=== PATIENT | female | born 1940 | race Caucasian/White ===

== ENCOUNTER 2017-04-14 16:28 | Inpatient (IN) | payer MEDICARE, BC ==
[~2017-04-14] VITALS: Ht 152.4 cm
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
[2017-04-14] MEDS ORDERED: PLAVIX75 MG PO (17:44)
[2017-04-14] MEDS ORDERED: LISINOPRIL10 MG PO (17:45)
[2017-04-14] MEDS ORDERED: NAMENDA10 MG PO (17:50)
[2017-04-14] MEDS ORDERED: OMEPRAZOLE20 M1 PO (17:51)
[2017-04-14] MEDS ORDERED: ARICEPT10 MG PO (17:52)
[2017-04-14] MEDS ORDERED: BETAPACE 80 MG80 MG PO (17:52)
[2017-04-14] MEDS ORDERED: CRESTOR20 MG PO (17:53)
[2017-04-14] MEDS ORDERED: COLACE100 MG PO (17:54)
[2017-04-14] MEDS ORDERED: NYSTATIN15 GM TOPICAL (17:57)
[2017-04-14 21:29] VITALS: BP 108/75
[2017-04-15 01:47] VITALS: BP 108/75; BMI 25.8
--- NOTE | 2017-04-15 04:57 | NUR ---
B) Patient alert and oriented to self, very confused and disoriented, quiet and pleasant, no aggression noted, I) Administered scheduled medications, redirected as needed, monitored for safety R) Medication compliant, wanders at times, P) Continue plan of care.
[2017-04-15 05:55] LABS: BASOPHILS 0.7 % (0-2); EOSINOPHILS 6.5 % (0-7); HEMATOCRIT 44.3 % (36.0-48.0); IMMATURE GRANULOCYTES 0.2 % (0-5); LYMPHOCYTES 33.4 % (15-50); MCH 30.5 pg (26.0-34.0); MCHC 31.6 g/dL (31.0-37.0); MCV 96.5 fL (80.0-100.0); MEAN PLATELET VOLUME 10.1 fL (7.4-10.4); MONOCYTES 8.6 % (2-11); NEUTROPHILS 50.6 % (40-80); PLATELET COUNT 259 10x3/uL (130-400); RBC 4.59 10x6/uL (4.00-5.40); RDW 14.3 % (11.5-14.5)
[2017-04-15 06:13] LABS: HEMOGLOBIN A1C 6.5 % (4.8-6.0)
[2017-04-15 06:18] LABS: ALBUMIN 3.3 g/dL (3.4-5.0); ANION GAP 11.3 mmol/L (8-16); BILIRUBIN - TOTAL 0.37 mg/dL (0.2-1.3); CALCIUM 8.7 mg/dL (8.5-10.1); CARBON DIOXIDE 29.9 mmol/L (21.0-32.0); CHOL - HDL RATIO 3.5 ratio (2.3-4.1); LDL-HDL RATIO 2.1 ratio (1.5-3.5); POTASSIUM - SERUM 5.2 mmol/L (3.5-5.1); PROTEIN - SERUM 6.9 g/dL (6.4-8.2); THYROID STIMULATING HORMONE 1.4 uIU/mL (0.36-3.74)
[2017-04-15 09:59] VITALS: BP 164/115
[2017-04-15 10:22] VITALS: BMI 25.7
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
--- NOTE | 2017-04-16 02:54 | NUR ---
B) Patient is alert and oriented to her self only, very confused, difficult to redirect unaware of where she is in a hospital, I) Administered scheduled medications, redirected as needed,crushed medications, R) Medications compliant aftered several tries, talks in word salad, P) Continue plan of care.
--- NOTE | 2017-04-16 08:03 | NUR ---
B) PATIENT IS AWAKE, SHE IS AMBULATING INDEPENDENTLY, BUT SHE IS CONFUSED, SHE CAN NOT FOLLOW SIMPLE COMMANDS, SHE HAS NOT ALLOWED ANYONE TO TAKE HER VS AND SHE DIDN'T REALLY WANT ANYONE TO TOUCH HER FOR AN ASSESSMENT THIS AM. I) PROVIDE PRESCRIBED MEDS. R) PATIENT IS COMPLIANT WITH MEDS. P) CONTINUE POC.
[2017-04-16 08:18] LABS: RAPID PLASMA REAGIN Non Reactive (Non Reactive); VITAMIN D 25 HYDROXY 14.7 ng/mL (30.0-100.0)
[2017-04-16 12:16] LABS: FOLATE (FOLIC ACID) - SERUM 9.1 ng/mL (>3.0)
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
[2017-04-16 19:38] LABS: APPEARANCE CLEAR (CLEAR); COLOR YELLOW (YELLOW)
[2017-04-16 19:39] LABS: BACTERIA MANY /hpf (NONE SEEN); BILIRUBIN NEGATIVE (NEGATIVE); EPITHELIAL CELLS 0-5 /hpf (0-5); GLUCOSE NEGATIVE (NEGATIVE); KETONE NEGATIVE (NEGATIVE); LEUKOCYTE ESTERASE 1+ (NEGATIVE); NITRITE NEGATIVE (NEGATIVE); PROTEIN NEGATIVE (NEGATIVE); RED CELLS - URINE 0-5 /hpf (0-5); SPECIFIC GRAVITY 1.015 (1.005-1.020); UROBILINOGEN NORMAL (NORMAL); WHITE CELLS - URINE 25-50 /hpf (0-5)
--- NOTE | 2017-04-17 03:06 | NUR ---
B) Patient alert and oriented to self, very confused, restless and anxious, wanders and states that she needs her babies, I) Administered scheduled medications, monitored for safety and behaviors, PRN Ativan 0.5 mg IM and Haldol 2 mg IM given for anxiety at 23:15, R) Medication compliant, resting quietly now, P) Continue plan of care.
[2017-04-17 08:42] VITALS: BP 174/85
--- NOTE | 2017-04-17 09:50 | PN ---
PATIENT:COLETTE MONTEIRO MEDICAL RECORD: [id number] LOCATION:JUMA Sanchez112 ADMISSION DATE: 04/14/17 PROGRESS NOTE DATE OF SERVICE: 04/16/2017 SUBJECTIVE: The patient's case was discussed with staff. She has no new complaint. OBJECTIVE: The patient is in good behavioral control with limited insight about her condition. She generally tolerates her medicines well. Eye contact is fair. Concentration is poor. ASSESSMENT: No change in diagnoses. PLAN: The patient is severely impaired. In fact Dr. Ayanna Chambers was unable to test her. Her dementia is quite advanced. She has not been aggressive today. TRANSINT:[id number] Voice Confirmation ID: [id number] DOCUMENT ID: [id number] EVANS KLINE MD at 0950 CC: [id number] DICTATION DATE: 04/16/17 1316 PALLET RECTIFIER: 04/16/17 1609 ADM IN [place] [id number] [place] [address]
--- NOTE | 2017-04-17 11:02 | NUR ---
B) PATIENT IS CONFUSED, SHE KNOWS HER NAME, BUT SHE HAS NO INSIGHT INTO HER ILLNESS, POOR SHORT TERM MEMORY RECALL. SHE AMBULES INDEPENDENTLY, SHE IS INCONTINENT OF B&B. PATIENT HAS NOT SHOWN ANY AGGRESSION TODAY. I) PROVIDE PRESCRIBED MEDS. R) PATIENT IS COMPLIANT WITH MEDS. SHE DOES NOT LIKE TO BE TOUCHED. SHE DID TAKE HER MEDS CRUSHED IN ICE CREAM THIS AM. P) CONTINUE POC.
--- NOTE | 2017-04-18 04:42 | NUR ---
B] PATIENT IS ALERT AND ORIENTED TO SELF ONLY, WANDERS AROUND TALKING IN WORD SALAD, VERY CONFUSED AND ANXIOUS AT TIMES, I] ADMINISTERED SCHEDULED MEDICATIONS, MONITORED FOR SAFETY, R) MEDICATION COMPLIANT,VERY CONFUSED, P] CONTINUE PLAN OF CARE.
[2017-04-18 08:00] VITALS: Ht 152.4 cm
--- NOTE | 2017-04-18 12:48 | PN ---
PATIENT:COLETTE MONTEIRO MEDICAL RECORD: [id number] LOCATION:BLAZEAaliyah Sanchez112 ADMISSION DATE: 04/14/17 PROGRESS NOTE DATE OF SERVICE: 04/17/2017 SUBJECTIVE: The patient's case was discussed with staff. She has no new complaint. OBJECTIVE: The patient has been significantly agitated, required p.r.n. Haldol and Ativan last night. The patient has no recollection of this. ASSESSMENT: No change in diagnoses. PLAN: Current medicines and therapies have been reviewed, both will be maintained. Her long-term prognosis is guarded. TRANSINT:[id number] Voice Confirmation ID: [id number] DOCUMENT ID: [id number] EVANS KLINE MD at 1248 CC: [id number] DICTATION DATE: 04/17/17 1006 CATERING ASSISTANT: 04/17/17 1406 ADM IN [place] [id number] [place] [id number]
--- NOTE | 2017-04-18 16:57 | NUR ---
RECEIVED THIS AM SITTING IN CHAIR IN HALLWAY AT NURSES STATION.IS ORIENTED TO SELF BUT REFUSES TO ANSWER QUESTIONS THIS AM.THIS AFTERNOON IS FRIENDLY TO THIS NURSE,VERY CONFUSED,UNABLE TO MAKE A COMPLETE THOUGHT.MEDS WERE TAKEN CRUSHED AND IN ICE CREAM .AMB PER SELF.WILL CONTINUE WITH PLAN OF CARE,MONITOR FOR GHANGES AND SAFETY.
--- NOTE | 2017-04-18 22:58 | NUR ---
B) Smiling and grinning, listening to peers but speaks few words. "If they're snotty", ... "go over there", ... then rambling nonsensical word salad. Noted to have bruising on both arms. Entered room during rounds, found patient sqatting on floor voiding. No verbal response when asked patient why she did not use the bathroom. I) Administer medications as ordered, redirect and reorient PRN. Offer 1:1 to verbalize feelings. Give time to respond. Assist with hygiene care. R) No aggression this shift. Took medications crushed in chocolate ice cream. Confused, oriented to person only. P) Continue to monitor per plan of care.
[2017-04-19 07:00] VITALS: BP 145/115
--- NOTE | 2017-04-19 10:00 | NUR ---
B) ORIENTED TO NAME ONLY, COOPERATIVE, SMILES, SPEECH IS WORD SALAD. SHE IS VERY CONFUSED AND DISORIENTED. NO AGGRESSION OR HALLUCINATIONS NOTED. I) ADMINISTERED PRESCRIBED MEDICATIONS, GROUP THERAPY PROVIDED. R) CONPLIANT WITH TAKING MEDICATIONS CRUSHED IN ICE CREAM. P) MONITOR FOR SAFETY AND CONTINUE CURRENT PLAN OF CARE.
--- NOTE | 2017-04-19 11:08 | PN ---
PATIENT:COLETTE MONTEIRO MEDICAL RECORD: [id number] LOCATION:JemimaGilbertoLIZZ Sanchez112 ADMISSION DATE: 04/14/17 PROGRESS NOTE DATE OF SERVICE: 04/18/2017 SUBJECTIVE: The patient's case was discussed with staff. She has no new complaint. OBJECTIVE: The patient denies intent to harm herself or others. She generally tolerates her medicines well. ASSESSMENT: No change in diagnoses. PLAN: Current medicines and therapies have been reviewed, both will be maintained. Long-term prognosis is guarded. TRANSINT:[id number] Voice Confirmation ID: [id number] DOCUMENT ID: [id number] EVANS KLINE MD at 1108 CC: [id number] DICTATION DATE: 04/18/17 1244 RADIO STATION ENGINEER: 04/18/172013 ADM IN [facility] [address] [place] [address]
[2017-04-19 19:54] VITALS: BP 110/60
--- NOTE | 2017-04-19 20:48 | NUR ---
RECEIVED IN DAYROOM. SITTING IN A CHAIR WITH A PEER AT HER SIDE. NOT SOCIALIZING. CALM AND COOPEWRATIVE WITH CARE AND ASSESSMENTS. NO SIGNS OF AGGRESSION. CONTINUES TO SIT QUIETLY IN CHAIR. CONTINUE PLAN OF CARE
--- NOTE | 2017-04-20 10:17 | PN ---
PATIENT:COLETTE MONTEIRO MEDICAL RECORD: [id number] LOCATION:BLAZEAaliyah Sanchez112 ADMISSION DATE: 04/14/17 PROGRESS NOTE DATE OF SERVICE: 04/19/2017 SUBJECTIVE: The patient's case was discussed with staff. She has no new complaint. OBJECTIVE: The patient denies intent to harm herself or others. She is very impaired cognitively and easily becomes anxious. ASSESSMENT: No change in diagnoses. PLAN: The patient will be treated with BuSpar at a dose of 10 mg twice daily. BuSpar is being used to treat her underlying anxiety. She will be monitored for clinical changes associated with its use. I anticipate she can be transitioned out of the hospital soon if this level of improvement is maintained. TRANSINT:[id number] Voice Confirmation ID: [id number] DOCUMENT ID: [id number] EVANS KLINE MD at 1017 CC: [id number] DICTATION DATE: 04/19/17 1401 TOOL AND DIE MACHINIST: 04/19/17 1552 ADM IN [place] [id number] [place] [address]
--- NOTE | 2017-04-20 15:13 | NUR ---
SITTING IN RECLINER WITH PEERS BY HER SIDE. VERY CONFUSED AND DISORIENTED TO SITUATION. ONLY ORIENTED TO HER NAME. ASSESSMENT COMPLETED. COOPERATIVE AT TIMES, WITH CARE. HER SPEEDCJH IS WORD SALAD. COMPLIANT WITH TAKING MEDICATIONS CRUSHED IN ICE CREAM. WILL CONTINUE PLAN OF CARE.
--- NOTE | 2017-04-20 20:09 | NUR ---
RECEIVED IN DAYROOM. SITTING IN CHAIR WITH PEERS AT HER SIDE. CALM AND COOPERATIVE WITH CARE AND ASSESSMENT. NO SIGNS OF AGGRESSION. REDIRECT AND REORIENT NEEDED. CONTINUES TO SIT QUIETLY IN CHAIR. CONTINUE PLAN OF CARE.
--- NOTE | 2017-04-20 20:45 | NUR ---
AGGRESSION WITH REDIRECTION. ATTEMPTED TO HIS MHT. ERDIRECTED AND REORIENTED.
[2017-04-20 21:15] VITALS: BP 157/52
[2017-04-21 07:58] VITALS: BP 142/85
--- NOTE | 2017-04-21 12:49 | PN ---
PATIENT:COLETTE MONTEIRO MEDICAL RECORD: [id number] LOCATION:BLAZEAaliyah Sanchez112 ADMISSION DATE: 04/14/17 PROGRESS NOTE DATE OF SERVICE: 04/20/2017 SUBJECTIVE: The patient's case was discussed with staff. She has no new complaint. OBJECTIVE: The patient is in good behavioral control with limited insight about her condition. She generally tolerates her medicines well. ASSESSMENT: No change in diagnoses. PLAN: Brief supportive and educational interventions were made. The patient is quite advanced. [facility] and assess her to ensure that she can have her needs met at that facility. TRANSINT:[id number] Voice Confirmation ID: [id number] DOCUMENT ID: [id number] EVANS KLINE MD at 1249 CC: [id number] DICTATION DATE: 04/20/17 1031 LINEMAN A CLASS: 04/20/17 1042 ADM IN [place] [id number] [place] [address]
--- NOTE | 2017-04-21 14:37 | NUR ---
B) PATIENT IS ORIENTED TO HERSELF ONLY, SHE IS SEVERELY IMPAIRED, SHE HAS NO INSIGHT INTO HER SITUATION OR HER ILLNESS. PATIENT AMBULATES AD [facility]O, SHE IS INCONT OF B&B, SHE IS UNABLE TO FOLLOW SIMPLE COMMANDS, BUT SHE HAS NOT SHOWN ANY AGGRESSION TODAY. I) PROVIDE PRESCRIBED MEDS. R) PATIENT IS COMPLIANT WITH MEDS, SHE NEEDS MULTIPLE PROMPTS TO ASSIST WITH ACTIVITIES. P) CONTINUE POC.
--- NOTE | 2017-04-22 00:31 | NUR ---
B) Patient is alert and oriented to self only, very confused and wanders at times, no awareness of surroundings noted, when spoken to she turns toward you with a blank stare, I) Administered scheduled medications crushed in ice cream that she fed herself. R) Medication compliant, calm and cooperative P) Continue plan of care.
--- NOTE | 2017-04-22 14:34 | NUR ---
Nutrition Follow Up: Chart reviewed. Pt feeds herself with cueing per MD note. Pt is eating 39% meal avg on a regular diet. +BM 04/21/17. Meds and labs reviewed. Rec continue current diet. Pt may benefit from an appetite stimulant. Will send Ensure TID. RD following.
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
--- NOTE | 2017-04-23 02:22 | NUR ---
B) patient is alert and oriented to self, very confused and unaware of surrounding, wandering the halls trying to go into other patients rooms, says she has to find 'him', I) Administered scheduled medications crushed in ice cream , monitored for safety, PRN Ativan 0.5 mg IM and Haldol 2 mg IM given for anxiety, R) Medication compliant, resting in bed now, P) Continue plan of care.
--- NOTE | 2017-04-23 07:53 | PN ---
PATIENT:COLETTE MONTEIRO MEDICAL RECORD: [id number] LOCATION:JUMA OnofreGilberto112 ADMISSION DATE: 04/14/17 PROGRESS NOTE DATE OF SERVICE: 04/22/2017 SUBJECTIVE: No new complaint. OBJECTIVE: The patient is somewhat poorly responsive. There is a great deal of latency in her speech and she remains quite confused. She is passively cooperative. Mood on the interview is somewhat perplexed. Affect very constricted. Speech is quite terse. Content of thought is negative for overt psychosis. Sensorium unchanged. ASSESSMENT: No change in diagnosis. PLAN: 1. Maintain current medications. 2. Continue supportive therapy. TRANSINT:[id number] Voice Confirmation ID: [id number] DOCUMENT ID: [id number] ANGELA RIVAS III, MD at 0753 CC: [id number] DICTATION DATE: 04/22/17 1204 FIREARMS SPECIALIST: 04/22/17 1300 ADM IN [place] [address] [place] [address]
--- NOTE | 2017-04-23 13:42 | NUR ---
B) PATIENT IS AWAKE AND ALERT, ORIENTED TO HER NAME AT TIMES, SHE ANSWERS SOME QUESTIONS APPROPRIATELY FROM TIME TO TIME, SHE USES FULL SENTENCES AT TIMES, BUT OTHER TIMES SHE USES WORD SALAD AND ECHALALIA. PATIENT AMBULATES INDEPENDENTLY, NEEDS ASSIST WITH ADL'S AND MEAL SET UP. I) PROVIDE PRESCRIBED MEDS. R) PATIENT IS COMPLIANT WITH MEDS AND UNIT MILIEU. NO AGGRESSION NOTED TODAY. P) CONTINUE POC.
--- NOTE | 2017-04-23 21:40 | PN ---
PATIENT:COLETTE MONTEIRO MEDICAL RECORD: [id number] LOCATION:JUMA Sanchez112 ADMISSION DATE: 04/14/17 PROGRESS NOTE DATE OF SERVICE: 04/23/2017 SUBJECTIVE: No new complaint. OBJECTIVE: The patient did have an episode of combativeness during activities of daily living when staff was giving her a shower. She continues to be extremely confused and is constantly looking for her "baby" as well as her . On exam, mood is somewhat anxious. Affect is very shallow. Speech is terse. Content of thought, exhibits delusional ideation due to profound sensorium deficits. Sensorium is unchanged. ASSESSMENT: No change in diagnosis. PLAN: 1. Continue current medications. 2. Continue supportive therapy. TRANSINT:[id number] Voice Confirmation ID: [id number] DOCUMENT ID: [id number] ANGELA RIVAS III, MD at 2140 CC: [id number] DICTATION DATE: 04/23/17 1234 MANAGER SPRING: 04/23/17 1329 ADM IN [place] [address] [place] [address]
--- NOTE | 2017-04-24 03:39 | NUR ---
B) Patient alert and oriented to self only, wanders at times, very confused and unaware of surrounding, calm and pleasant. I) Administered scheduled medications, frequently redirected R) Medications compliant, restless at times, P) Continue plan of care.
[2017-04-24 10:20] VITALS: BP 161/85
--- NOTE | 2017-04-24 11:00 | NUR ---
B) ALERT AND ORIENTED TO SELF ONLY, VERY CONFUSED AND SPEAKS IN WORD SALAD. ASSESSMENT COMPLETED. CALM AND COOPERATIVE WITH CARE. I) ADMINISTER PRESCRIBED MEDICATIONS. REORIENT AND REDIRECT PRN. R) COMPLIANT WITH TAKING MEDICATIONS. WALKS AROUND DAYROOM OCCASIONALLY.
[2017-04-24 19:30] VITALS: BP 136/73
--- NOTE | 2017-04-25 04:15 | NUR ---
B) Patient alert and oriented to self only, patient unable to state name very confused and restless, wanders hallway at times, exit seeking. I) Administered scheduled medications, redireded frequenly, monitored for falls and safety. R) Medication compliant, blank expression, difficult to redirect, unable to orient. P) Continue plan of care.
[2017-04-25 07:00] VITALS: BP 128/81
[2017-04-25 19:47] VITALS: BP 139/66
--- NOTE | 2017-04-26 00:19 | NUR ---
RECEIVED IN BEDROOM. LAYING IN BED WITH EYES CLOSED. RESPONDS TO VOICE. CALM AND COOPERATIVE WITH CARE AND ASSESSMENTS. NO SIGNS OF AGGRESSION. RESTING IN BED WITH EYES CLOSED. CONTINUE PLAN OF CARE
[2017-04-26 08:30] VITALS: BP 145/48
--- NOTE | 2017-04-26 09:48 | PN ---
PATIENT:COLETTE MONTEIRO MEDICAL RECORD: [id number] LOCATION:BLAZEAaliyah Sanchez112 ADMISSION DATE: 04/14/17 PROGRESS NOTE DATE OF SERVICE: 04/21/2017 SUBJECTIVE: The patient's case was discussed with staff. She has no new complaint. OBJECTIVE: The patient is severely impaired cognitively. She has not been aggressive today. She has limited insight about her situation. ASSESSMENT: No change in diagnoses. PLAN: Supportive and educational interventions were made. Snf prognosis is guarded. TRANSINT:[id number] Voice Confirmation ID: [id number] DOCUMENT ID: [id number] EVANS KLINE MD at 0948 CC: [id number] DICTATION DATE: 04/21/17 1259 TANK FURNACE OPERATOR: 04/21/17 1432 ADM IN [place] [address] [place] [address]
--- NOTE | 2017-04-26 10:46 | NUR ---
PT IS VERY TIRED TODAY BUT DOES AWAKEN EASILY FOR ASSESSMENT AND MEDICATIONS. MEDICATIONS GIVEN ORDERED. NO AGGRESSION NOTED. PT REQUIRES FREQUENT REDIRECTION AND EDUCATION BUT SHOWS NO SIGNS OF UNDERSTANDING OR RETAINING. FALL PRECAUTIONS MAINTAINED. WILL CONTINUE TO MONITOR AND CONTINUE WITH PLAN OF CARE.
--- NOTE | 2017-04-26 11:26 | PN ---
PATIENT:COLETTE MONTEIRO MEDICAL RECORD: [id number] LOCATION:JemimaGilbertoLIZZ Sanchez112 ADMISSION DATE: 04/14/17 PROGRESS NOTE DATE OF SERVICE: 04/25/2017 SUBJECTIVE: No new complaint. OBJECTIVE: The patient continues to be extremely confused and does require redirection from time to time. On exam, mood is slightly anxious. Affect is very shallow and childlike. Speech is rather terse. Content of thought negative for overt psychosis. Sensorium shows no change. ASSESSMENT: No change in diagnoses. PLAN: 1. Maintain current medication. 2. Continue supportive therapy. TRANSINT:[id number] Voice Confirmation ID: [id number] DOCUMENT ID: [id number] ANGELA RIVAS III, MD at 1126 CC: [id number] DICTATION DATE: 04/25/172150 SHOPPING CENTRE MANAGER: 04/26/17 0021 ADM IN [facility] [address] [place] [id number]
[2017-04-26 19:25] VITALS: BP 146/91
--- NOTE | 2017-04-26 19:56 | NUR ---
RECEIVED IN HALLWAY. SITTING IN CHAIR WITH PEERS BY HER SIDE. CALM AND COOPERATIVE WITH CARE AND ASSESSMENTS. NO SIGNS OF AGGRESSION. REDIRECT AND REORIENT NEEDED. CONTINUES TO SIT QUIETLY IN HALLWAY. CONTINUE PLAN OF CARE
[2017-04-27 07:00] VITALS: BP 130/67
--- NOTE | 2017-04-27 07:50 | PN ---
PATIENT:COLETTE MONTEIRO MEDICAL RECORD: [id number] LOCATION:JUMA OnofreGilberto112 ADMISSION DATE: 04/14/17 PROGRESS NOTE DATE OF SERVICE: 04/26/2017 SUBJECTIVE: The patient's case was discussed with staff. She has no new complaint. OBJECTIVE: The patient's dementia is severe. She has almost no insight about her situation. She does have periods of agitation, but they seem to be limited to personal care. ASSESSMENT: No change in diagnoses. PLAN: I have reviewed this patient's medications. I think her prognosis is guarded. I anticipate that she can be transitioned back to the halfway soon. TRANSINT:[id number] Voice Confirmation ID: [id number] DOCUMENT ID: [id number] EVANS KLINE MD at 0750 CC: [id number] DICTATION DATE: 04/26/17 1000 CAMERA MECHANIC: 04/26/17 1530 ADM IN [place] [address] [place] [address]
--- NOTE | 2017-04-27 09:00 | NUR ---
ASSESSMENT COMPLETED. AWAKE AND ALERT TO NAME NAME ONLY. NEEDS LOTS OF REDIRECTING AND REORIENTING. ADMINISTER PRESCRIBED MEDICATIONS AND COMPLIANT WITH TAKING. AMBULATES ABOUT UNIT. SAFETY MAINTAINED. CONTINUE POC.
[2017-04-27] MEDS ORDERED: BUSPAR10 MG PO (14:39)
[2017-04-27] MEDS ORDERED: PERPHENAZINE2 MG PO (14:40)
[2017-04-27] MEDS ORDERED: VITAMIN D5000 UNIT PO (14:41)
[2017-04-27] MEDS ORDERED: VITAMIN B-121000 MCG PO (14:41)
--- NOTE | 2017-04-27 19:58 | NUR ---
RECEIVED IN HALLWAY OUTSIDE OF NURSES STATION. VERY CONFUSED. CALM AND COOPERATIVE WITH CARE AND ASSESSMENTS. NO SIGNS OF AGGRESSION. REDIERCT AND REOREINT NEEDED. CONTINUE PLAN OF CARE
[2017-04-28 08:48] VITALS: BP 125/58
--- NOTE | 2017-04-28 12:55 | NUR ---
Pt calm, quiet mood, alert, med compliant, no aggression. Appetite good. Belongings packed for discharge to LTC facility. Meds admin and group therapy provided. Cherelle meds well. Present for group. Compliant with meds and staff requests. Pt. ambulatory and assisted to OR bus per OR staff. Report called to LTC facility per Paulette Patterson RN. Physicians orders, med reconcilliation sheet and other pertinent discharge documents sent with OR staff. Pt disharged from [facility] in care of OR staff.
--- NOTE | 2017-04-28 15:29 | PN ---
PATIENT:COLETTE MONTEIRO MEDICAL RECORD: [id number] LOCATION:[facility] ADMISSION DATE: 04/14/17 PROGRESS NOTE DATE OF SERVICE: 04/27/2017 SUBJECTIVE: The patient's case was discussed with staff. She has no new complaint. OBJECTIVE: The patient is severely impaired cognitively. She has not been aggressive for a number of days. I see no improvement in her underlying cognition, which is severely impaired. ASSESSMENT: No change in diagnoses. PLAN: The patient's family [facility] and understand her condition. They do have her on a unit that provides a great deal of supervision. I think her long-term prognosis is guarded and she certainly has no evidence of acute or direct dangerousness, but is simply in need of 72-yjgs-v-day supervision. Based on this, I am going to go ahead and discharge her tomorrow back to the [facility] and follow up will be with her primary care physician and the [facility]. TRANSINT:[id number] Voice Confirmation ID: [id number] DOCUMENT ID: [id number] EVANS KLINE MD at 1529 CC: [id number] DICTATION DATE: 04/27/17 1438 PARTNER INTEGRATION PLANNER: 04/27/17 1948 ADM IN [place] [id number] [place] [address]
--- NOTE | 2017-04-29 12:33 | PN ---
PATIENT:COLETTE MONTEIRO MEDICAL RECORD: [id number] LOCATION:[facility] ADMISSION DATE: 04/14/17 PROGRESS NOTE DATE OF SERVICE: 04/28/2017 SUBJECTIVE: The patient's case was discussed with staff. She has no new complaint. OBJECTIVE: The patient is in good behavioral control with limited insight about her condition. She does tolerate her medicines well. ASSESSMENT: No change in diagnoses. PLAN: The patient will be transitioned out of the hospital today. Her long-term prognosis is guarded. Followup will be with her outpatient primary care physician. TRANSINT:[id number] Voice Confirmation ID: [id number] DOCUMENT ID: [id number] EVANS KLINE MD at 1233 CC: [id number] DICTATION DATE: 04/28/17 1548 SALES CLOSER: 04/28/17 2200 DIS IN 04/28/17 [facility] [address] [place] [address]
== END 2017-04-28 19:42 | disposition home or self-care (01) | DRG 57 ==
LOC: D.PSYCH 16:28
PROVIDERS: ADMIT Psychiatry & Neurology Psychiatry
DX: G30.1 Alzheimer's disease with late onset (principal); F02.81 Dementia in other diseases classified elsewhere, unspecified severity, with behavioral disturbance; N39.0 Urinary tract infection, site not specified; I10 Essential (primary) hypertension; K21.9 Gastro-esophageal reflux disease without esophagitis; Z95.0 Presence of cardiac pacemaker; E78.5 Hyperlipidemia, unspecified; E55.9 Vitamin D deficiency, unspecified; B96.20 Unspecified Escherichia coli [E. coli] as the cause of diseases classified elsewhere

== ENCOUNTER 2017-07-26 13:39 | Inpatient (IN) | payer MEDICARE, BC ==
[~2017-07-26] VITALS: Ht 162.6 cm; Wt 68.2 kg
--- NOTE | ~2017-07-26 | PN ---
PATIENT:COLETTE MONTEIRO MEDICAL RECORD: [id number] LOCATION:[facility]113 ADMISSION DATE: 07/26/17 PROGRESS NOTE DATE OF SERVICE: 07/28/2017 SUBJECTIVE: No new complaint. OBJECTIVE: The patient remains extremely confused. She is very pleasant on approach. Mood is euthymic. Affect very constricted overall. Speech is rambling and disjointed. Content of thought is negative for overt psychosis. Sensorium unchanged. ASSESSMENT: No change in diagnosis. PLAN: 1. Maintain current medications. 2. Continue supportive therapy. TRANSINT:[id number] Voice Confirmation ID: [id number] DOCUMENT ID: [id number] ANGELA RIVAS III, MD at 0504 CC: [id number] DICTATION DATE: 07/28/17830 DATA ADMINISTRATOR: 07/28/17 1315 ADM IN [place] [address] [place] [address]
--- NOTE | ~2017-07-26 | PN ---
PATIENT:COLETTE MONTEIRO MEDICAL RECORD: [id number] LOCATION:JU[facility]113 ADMISSION DATE: 07/26/17 PROGRESS NOTE DATE OF SERVICE: 08/02/2017 SUBJECTIVE: No coherent complaint. OBJECTIVE: The patient remains pleasant. She accepts redirection fairly well. She remains very confused. On exam, mood is euthymic. Affect is constricted. Speech is tangential and essentially incoherent. Content of thought shows no overt psychosis. Sensorium shows no change. ASSESSMENT: No change in diagnosis. PLAN: 1. Continue current medication. 2. Continue supportive therapy. TRANSINT:[id number] Voice Confirmation ID: [id number] DOCUMENT ID: [id number] ANGELA RIVAS III, MD at 1019 CC: [id number] DICTATION DATE: 08/02/17 1150 VETERINARY ASSISTANT: 08/02/17 1221 ADM IN [place] [id number] [place] [id number]
--- NOTE | ~2017-07-26 | PN ---
PATIENT:COLETTE MONTEIRO MEDICAL RECORD: [id number] LOCATION:[facility]113 ADMISSION DATE: 07/26/17 PROGRESS NOTE DATE OF SERVICE: 07/30/2017 SUBJECTIVE: No new complaint. OBJECTIVE: Staff reports the patient continues to be quite confused. She is compliant. On exam, the patient's speech is quite terse. Facial expression is blank. Mood is euthymic, affect very constricted. Speech is incoherent. Sensorium shows no change. ASSESSMENT: No change in diagnosis. PLAN: 1. Maintain current medications. 2. Continue supportive therapy. TRANSINT:[id number] Voice Confirmation ID: [id number] DOCUMENT ID: [id number] ANGEAL RIVAS III, MD at 2107 CC: [id number] DICTATION DATE: 07/30/17 1200 HIDE CURER: 07/30/17 1249 ADM IN [place] [id number] [place] [id number]
--- NOTE | ~2017-07-26 | PN ---
PATIENT:COLETTE MONTEIRO MEDICAL RECORD: [id number] LOCATION:JUMA Forbes ADMISSION DATE: 07/26/17 PROGRESS NOTE DATE OF SERVICE: 08/03/2017 SUBJECTIVE: No new complaint. OBJECTIVE: The patient has been intrusive primarily due to her extreme confusion. She occasionally wanders into the rooms of other patients and lies down on the bed. However, she accepts redirection fairly well. She has been compliant with medication. On exam, mood is euthymic. Affect is very shallow and constricted. Speech is rambling. Content of thought is negative for clear cut psychosis. Sensorium shows no change. ASSESSMENT: No change in diagnosis. PLAN: 1. Maintain current medications and supportive therapy. 2. Continue working on placement options. TRANSINT:[id number] Voice Confirmation ID: [id number] DOCUMENT ID: [id number] ANGELA RIVAS III, MD at 1011 CC: [id number] DICTATION DATE: 08/03/17 1045 GAMING COMMISSIONER: 08/03/17 1113 ADM IN [place] [id number] [place] [address]
--- NOTE | ~2017-07-26 | PN ---
PATIENT:COLETTE MONTEIRO MEDICAL RECORD: [id number] LOCATION:JUMA Forbes ADMISSION DATE: 07/26/17 PROGRESS NOTE DATE OF SERVICE: 07/29/2017 SUBJECTIVE: No new complaint. OBJECTIVE: The patient remains extremely confused. Speech is rambling and virtually incomprehensible. The patient is easily redirected, but is completely disoriented. On exam, mood is euthymic. Affect is very shallow. Speech is incoherent. Content of thought is negative for overt psychosis. Sensorium shows no improvement. ASSESSMENT: No change in diagnosis. PLAN: 1. Maintain current medication. 2. Continue supportive therapy. TRANSINT:[id number] Voice Confirmation ID: [id number] DOCUMENT ID: [id number] ANGELA RIVAS III, MD at 1201 CC: [id number] DICTATION DATE: 07/29/17 1139 BAR POINTER: 07/29/17 1229 ADM IN [place] [address] [place] [address]
--- NOTE | ~2017-07-26 | PN ---
PATIENT:COLETTE MONTEIRO MEDICAL RECORD: [id number] LOCATION:JUMA [facility]113 ADMISSION DATE: 07/26/17 PROGRESS NOTE DATE OF SERVICE: 08/04/2017 SUBJECTIVE: No new complaint. OBJECTIVE: The patient remains very confused, but has not shown any behavioral problems. We do anticipate discharge at the end of the week. On exam, mood is euthymic. Affect is very bland and constricted. Speech is rambling. Content of thought negative for overt psychosis. Sensorium is unchanged. ASSESSMENT: No change in diagnosis. PLAN: 1. We will continue current medications and supportive therapy. 2. Anticipate discharge on Wednesday. TRANSINT:[id number] Voice Confirmation ID: [id number] DOCUMENT ID: [id number] ANGELA RIVAS III, MD at 1101 CC: [id number] DICTATION DATE: 08/04/17 1102 CIGARETTE SELLER: 08/04/17 1153 ADM IN [facility] [address] [place] [address]
--- NOTE | ~2017-07-26 | PSY ---
PATIENT NAME:COLETTE MONTEIRO MEDICAL RECORD: [id number] : 36 LOCATION:[facility] ADMISSION DATE: 07/26/17 ACCOUNT: [id number] PSYCHIATRIC EVALUATION DATE OF EVALUATION: 07/27/17 IDENTIFYING DATA: This is the second recent [facility] admission for this 77-year-old single white female. 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 She is a resident of the [facility]. Over the last several days, she has become very combative and uncooperative. She is constantly seeking an exit and is difficult to redirect. She has shown worsening confusion and extremely disjointed speech. Because of worsening cognition and behavior, the patient is now admitted for reevaluation and medication adjustment. The patient did require the use of Ativan last night for p.r.n. On exam this morning, the patient appears to have no recollection of the events in the last several days. PAST MEDICAL HISTORY: The patient has a history of chronic cardiac arrhythmias, hypertension, gastroesophageal reflux disease, hyperlipidemia, and vitamin D deficiency. FAMILY HISTORY: Noncontributory. SOCIAL HISTORY: The patient is . She does have several children. There are no substance abuse issues noted. CURRENT MEDICATION: At the time of admission included vitamin B12 and D supplements, Protonix, Crestor, perphenazine, Aricept, Namenda, Mycostatin, Betapace, BuSpar, lisinopril, Plavix, and recently started Levaquin. MENTAL STATUS EXAMINATION: On exam, the patient's mood is euthymic. Affect is very constricted. Speech is low in volume and rambling and nonsensical. Content of thought is negative for overt psychosis. The patient is oriented only to person. She shows global memory impairment. She shows no insight. DIAGNOSTIC IMPRESSION: AXIS I: Senile dementia of the Alzheimer's type with behavioral disturbance. AXIS II: No diagnosis. AXIS III: Gastroesophageal reflux disease, hyperlipidemia, vitamin D and B12 deficiencies, cardiac arrhythmias, hypertension. AXIS IV: Moderate. AXIS V: 36. PLAN: 1. The patient is admitted for further medical and psychiatric workup. 2. Daily supportive therapy. 3. Coordinate with referring agency and family regarding followup care. TRANSINT:[id number] Voice Confirmation ID: [id number] DOCUMENT ID: [id number] ANGELA RIVAS III, MD at 0800 CC: [id number] DICTATION DATE: 07/27/17 1006 PROCUREMENT ACCOUNTANT: 07/27/17 1047 ADM IN [place] [id number] [place] [id number]
--- NOTE | ~2017-07-26 | PN ---
PATIENT:COLETTE MONTEIRO MEDICAL RECORD: [id number] LOCATION:JUMA [facility]113 ADMISSION DATE: 07/26/17 PROGRESS NOTE DATE OF SERVICE: 07/31/2017 SUBJECTIVE: No new complaint. OBJECTIVE: The patient remains quite confused and wanders. She is easy to redirect; however. On exam, mood is euthymic. Affect constricted. Speech is tangential, rambling, and incoherent. Content of thought is negative for clear cut psychosis. Sensorium shows no change. ASSESSMENT: No change in diagnosis. PLAN: 1. Continue current medications. 2. Continue supportive therapy. TRANSINT:[id number] Voice Confirmation ID: [id number] DOCUMENT ID: [id number] ANGELA RIVAS III, MD at 1108 CC: [id number] DICTATION DATE: 07/31/17 1042 PUNCH CARD OPERATOR: 07/31/17 1059 ADM IN [facility] [address] [place] [address]
--- NOTE | ~2017-07-26 | DS ---
PATIENT:COLETTE MONTEIRO :36 MEDICAL RECORD: [id number] DISCHARGE SUMMARY ADMISSION DATE: 07/26/17 DISCHARGE DATE: 08/06/17 DATE OF ADMISSION: 07/26/2017. DATE OF DISCHARGE: 08/06/2017. HISTORY: Second recent group home admission for this 77-year-old single white female. She had a previous diagnosis of Alzheimer's dementia with behavioral disturbance. She has been a resident of the [facility]. The patient had been showing markedly worsened confusion and some combativeness. She had been attempting to elope. Because of deterioration, the patient was readmitted. For further details, please see previously dictated history. COURSE IN THE HOSPITAL: The patient was seen in consultation by Dr. Abel. She noted the presence of coronary artery disease, hypertension, hyperlipidemia, vitamin D deficiency, and GERD. The patient also had an active urinary tract infection at the time of admission. Over the course of the hospitalization, the patient was successfully treated for her infection. She was started on perphenazine 2 mg at bedtime. She was maintained on Namenda 10 mg twice daily and Aricept 10 mg at bedtime as well as BuSpar 10 mg b.i.d. The patient showed fair improvement in terms of her agitation, but her mentation did not improve significantly and the patient continued to show severe confusion with disjointed speech; however, by the time of discharge, it was felt that she was stable enough to return to the care home environment. FINAL DIAGNOSES: AXIS I: Alzheimer's dementia with behavioral disturbance. AXIS II: No diagnosis. AXIS III: Gastroesophageal reflux disease, hyperlipidemia, vitamin D and B12 deficiencies, cardiac arrhythmias, and hypertension. AXIS IV: Moderate. AXIS V: 40. PLAN: 1. The patient is discharged on current medications. 2. Diet and activities as tolerated. TRANSINT:[id number] Voice Confirmation ID: [id number] DOCUMENT ID: [id number] ANGELA RIVAS III, MD at 0826 CC: [id number] DICTATION DATE: 08/05/17 1143 PARACHUTE RIGGER: 08/05/17 1300 DIS IN 08/06/17 [place] [address]
--- NOTE | ~2017-07-26 | PN ---
PATIENT:COLETTE MONTEIRO MEDICAL RECORD: [id number] LOCATION:JUMA Sanchez113 ADMISSION DATE: 07/26/17 PROGRESS NOTE DATE OF SERVICE: 08/06/2017 SUBJECTIVE: The patient's case was discussed with staff. She has no new complaint. OBJECTIVE: The patient is in good behavioral control. She has limited insight about her condition. She generally tolerates her medicines well. ASSESSMENT: No change in diagnoses. PLAN: Brief supportive and educational interventions were made. The patient's long-term prognosis is guarded. TRANSINT:[id number] Voice Confirmation ID: [id number] DOCUMENT ID: [id number] EVANS KLINE MD at 0944 CC: [id number] DICTATION DATE: 08/06/17 1230 FILTER BED PLACER: 08/06/17 1238 DIS IN 08/06/17 [place] [id number] [place] [address]
[~2017-07-26 13:39] MED LIST: ARICEPT10 MG PO; BETAPACE 80 MG80 MG PO; BUSPAR10 MG PO; COLACE100 MG PO; CRESTOR20 MG PO; LISINOPRIL10 MG PO; NAMENDA10 MG PO; NYSTATIN15 GM TOPICAL; OMEPRAZOLE20 M1 PO; PERPHENAZINE2 MG PO; PLAVIX75 MG PO; VITAMIN B-121000 MCG PO; VITAMIN D5000 UNIT PO
[2017-07-26 14:52] LABS: BASOPHILS 0.5 % (0-2); EOSINOPHILS 2.2 % (0-7); HEMATOCRIT 42.1 % (36.0-48.0); HEMOGLOBIN 13.7 g/dL (12-16); IMMATURE GRANULOCYTES 0.3 % (0-5); LYMPHOCYTES 27.1 % (15-50); MCH 30.7 pg (26.0-34.0); MCHC 32.5 g/dL (31.0-37.0); MCV 94.4 fL (80.0-100.0); MEAN PLATELET VOLUME 10.1 fL (7.4-10.4); MONOCYTES 6.6 % (2-11); NEUTROPHILS 63.3 % (40-80); PLATELET COUNT 286 10x3/uL (130-400); RBC 4.46 10x6/uL (4.00-5.40); RDW 13.6 % (11.5-14.5); WBC 11.6 10x3/uL (4.8-10.8)
[2017-07-26 15:12] LABS: ALBUMIN 3.5 g/dL (3.4-5.0); ANION GAP 15.1 mmol/L (8-16); BILIRUBIN - TOTAL 0.33 mg/dL (0.2-1.3); CALCIUM 8.8 mg/dL (8.5-10.1); CARBON DIOXIDE 27.9 mmol/L (21.0-32.0); CREATININE - SERUM 1.1 mg/dL (0.6-1.3); PROTEIN - SERUM 7.2 g/dL (6.4-8.2)
[2017-07-26 15:13] LABS: UDS - AMPHET NEGATIVE QUAL (NEGATIVE); UDS - BARB NEGATIVE QUAL (NEGATIVE); UDS - BENZO NEGATIVE QUAL (NEGATIVE); UDS - COCAINE NEGATIVE QUAL (NEGATIVE); UDS - OPIATE NEGATIVE QUAL (NEGATIVE); UDS - PCP NEGATIVE QUAL (NEGATIVE); UDS - THC NEGATIVE QUAL (NEGATIVE)
[2017-07-26 15:21] LABS: APPEARANCE HAZY (CLEAR); BILIRUBIN NEGATIVE (NEGATIVE); COLOR YELLOW (YELLOW); GLUCOSE NEGATIVE (NEGATIVE); KETONE NEGATIVE (NEGATIVE); NITRITE POSITIVE (NEGATIVE); PROTEIN TRACE mg/dL (NEGATIVE); UROBILINOGEN NORMAL (NORMAL)
[2017-07-26 15:22] LABS: BACTERIA MANY /hpf (NONE SEEN); EPITHELIAL CELLS 0-5 /hpf (0-5); RED CELLS - URINE 0-5 /hpf (0-5); WHITE CELLS - URINE >50 /hpf (0-5)
[2017-07-27 07:00] VITALS: BP 115/61
[2017-07-27 15:16] LABS: HEMOGLOBIN A1C 6.1 % (4.8-6.0)
[2017-07-27 15:35] LABS: CHOL - HDL RATIO 3.6 ratio (2.3-4.1); LDL-HDL RATIO 2.1 ratio (1.5-3.5); THYROID STIMULATING HORMONE 1.35 uIU/mL (0.36-3.74)
[2017-07-28 07:27] LABS: RAPID PLASMA REAGIN Non Reactive (Non Reactive)
[2017-07-28 08:19] LABS: FOLATE (FOLIC ACID) - SERUM 11.1 ng/mL (>3.0)
[2017-07-28 10:30] VITALS: BP 115/65
[2017-07-29 09:47] VITALS: BP 136/70
[2017-07-29 12:37] VITALS: BP 136/70
[2017-07-29 19:59] VITALS: BP 136/70
[2017-07-30 08:30] VITALS: BP 139/115
[2017-07-31 07:00] VITALS: BP 135/65
[2017-08-01 08:18] VITALS: BP 127/075
[2017-08-02 20:29] VITALS: BP 120/56
[2017-08-04 09:44] VITALS: BP 108/70
[2017-08-04 19:30] VITALS: BP 125/75
[2017-08-05 08:00] VITALS: BP 121/63
[2017-08-05 09:04] VITALS: BP 121/63
[2017-08-05 15:47] VITALS: Ht 162.6 cm; Wt 68.2 kg
[2017-08-06 09:35] VITALS: BP 112/80
== END 2017-08-06 11:15 | disposition home or self-care (01) | DRG 57 ==
LOC: D.ER 13:39 → D.PSYCH 17:09
PROVIDERS: Family Medicine; Psychiatry & Neurology Psychiatry
DX: G30.9 Alzheimer's disease, unspecified (principal); F02.81 Dementia in other diseases classified elsewhere, unspecified severity, with behavioral disturbance; F05 Delirium due to known physiological condition; N39.0 Urinary tract infection, site not specified; K21.9 Gastro-esophageal reflux disease without esophagitis; E78.5 Hyperlipidemia, unspecified; Z95.0 Presence of cardiac pacemaker; E53.8 Deficiency of other specified B group vitamins; E55.9 Vitamin D deficiency, unspecified; I10 Essential (primary) hypertension; F32.9 Major depressive disorder, single episode, unspecified

== ENCOUNTER 2018-08-13 01:55 | Emergency (ER) | payer MEDICARE, BC ==
[~2018-08-13] VITALS: Ht 162.6 cm; Wt 56.8 kg
[2018-08-13 02:00] VITALS: Ht 162.6 cm; Wt 56.8 kg
[2018-08-13 06:56] VITALS: BP 145/88
== END 2018-08-13 06:58 ==
LOC: D.ER 01:55
DX: S01.01XA Laceration without foreign body of scalp, initial encounter (principal); X58.XXXA Exposure to other specified factors, initial encounter; Y93.89 Activity, other specified; Y92.129 Unspecified place in nursing home as the place of occurrence of the external cause; F03.90 Unspecified dementia, unspecified severity, without behavioral disturbance, psychotic disturbance, mood disturbance, and anxiety

== ENCOUNTER 2018-08-22 11:23 | Emergency (ER) | payer MEDICARE, BC ==
[~2018-08-22] VITALS: Ht 162.6 cm; Wt 45.5 kg
[2018-08-22 11:27] VITALS: BP 112/89; Ht 162.6 cm; Wt 45.5 kg
== END 2018-08-22 13:10 ==
LOC: D.ER 11:23
DX: S01.01XD Laceration without foreign body of scalp, subsequent encounter (principal); X58.XXXD Exposure to other specified factors, subsequent encounter; Z48.02 Encounter for removal of sutures

== ENCOUNTER 2020-06-01 16:57 | Emergency (ER) | payer MEDICARE, BC ==
[~2020-06-01] VITALS: Ht 162.6 cm; Wt 61.4 kg
[2020-06-01 17:34] VITALS: Ht 162.6 cm; Wt 61.4 kg
[2020-06-01 18:15] LABS: BILIRUBIN NEGATIVE (NEGATIVE); KETONE NEGATIVE (NEGATIVE); NITRITE NEGATIVE (NEGATIVE); UROBILINOGEN NORMAL mg/dL (< 2); WHITE CELLS - URINE NONE SEEN HPF (0-4)
[2020-06-01 18:16] LABS: BACTERIA MANY HPF (NONE SEEN); EPITHELIAL CELLS NSEEN /hpf (0-5); YEAST >1+ /hpf (NONE SEEN)
[2020-06-01 18:20] LABS: BASOPHILS 0.4 % (0-2); EOSINOPHILS 4.4 % (0-7); HEMATOCRIT 39.5 % (36.0-48.0); HEMOGLOBIN 12.6 g/dL (12-16); IMMATURE GRANULOCYTES 0.3 % (0-5); LYMPHOCYTES 35.1 % (15-50); MCH 30.7 pg (26.0-34.0); MCHC 31.9 g/dL (31.0-37.0); MCV 96.3 fL (80.0-100.0); MEAN PLATELET VOLUME 9.8 fL (7.4-10.4); MONOCYTES 7.3 % (2-11); NEUTROPHILS 52.5 % (40-80); PLATELET COUNT 292 10x3/uL (130-400); RDW 14.2 % (11.5-14.5); WBC 11.6 10x3/uL (4.8-10.8)
[2020-06-01 18:28] LABS: CALC OSMOLALITY 291 mosm/kg (275-300); CALCIUM 8.3 mg/dL (8.5-10.1); CARBON DIOXIDE 27.4 mmol/L (21.0-32.0); CHLORIDE - SERUM 109 mmol/L (98-107); CREATININE - SERUM 0.6 mg/dL (0.6-1.3); GLUCOSE 89 mg/dL (74-106); POTASSIUM - SERUM 5.5 mmol/L (3.5-5.1); SODIUM 146 mmol/L (136-145); UREA NITROGEN 18 mg/dL (7-18); eGFR NON AFRICAN AMERICAN > 90 mL/min (90-120)
[2020-06-01 18:35] LABS: ALKALINE PHOSPHATASE 72 U/L (30-120); ALT (SGPT) 21 U/L (10-68); BILIRUBIN - TOTAL 0.31 mg/dL (0.2-1.3); PROTEIN - SERUM 6.5 g/dL (6.4-8.2)
[2020-06-02 00:57] VITALS: BP 128/82
== END 2020-06-01 22:40 | disposition home or self-care (01) ==
LOC: D.ER 16:57
PROVIDERS: Family Medicine
DX: S01.91XA Laceration without foreign body of unspecified part of head, initial encounter (principal); W19.XXXA Unspecified fall, initial encounter; Y93.9 Activity, unspecified; Y92.9 Unspecified place or not applicable; G30.9 Alzheimer's disease, unspecified; F02.80 Dementia in other diseases classified elsewhere, unspecified severity, without behavioral disturbance, psychotic disturbance, mood disturbance, and anxiety; E86.0 Dehydration